=== PATIENT | male | born 1970 | race Caucasian/White ===

== ENCOUNTER 2019-02-14 18:20 | Emergency (ER) | payer BC ==
[~2019-02-14] VITALS: Ht 180.3 cm; Wt 102.1 kg
[2019-02-14] MEDS ORDERED: XYOSTED100 MG/0.5 IM (18:30)
[2019-02-14] MEDS ORDERED: ADDERALL 10 MG10 MG PO (18:30)
[2019-02-14 20:15] VITALS: BP 140/83
== END 2019-02-14 20:15 | disposition left against medical advice (07) ==
LOC: M.ERS 18:20
DX: Z53.21 Procedure and treatment not carried out due to patient leaving prior to being seen by health care provider (principal)